=== PATIENT | female | born 1985 | race Caucasian/White ===

== ENCOUNTER → 2016-10-15 | Outpatient (CLI) | payer BC | LOC: LAB 23:42 | PROVIDERS: ATTEND Physician Assistant | DX: M79.1 Myalgia (principal) | CPT/HCPCS: 36415; 84436; 84443; 85652; 86038; 86140; 86430 ==

== ENCOUNTER → 2017-03-11 | Outpatient (CLI) | payer BC | LOC: OD 11:27 | PROVIDERS: ATTEND Physician Assistant | DX: E88.81 Metabolic syndrome and other insulin resistance (principal); Z53.8 Procedure and treatment not carried out for other reasons ==

== ENCOUNTER → 2017-05-18 | Outpatient (CLI) | payer BC ==
[2017-05-18 10:00] LABS: GLUCOSE,FASTING 94 mg/dL (<110)
[2017-05-18 10:03] LABS: FASTING GAC 92 (<110)
[2017-05-19 12:38] LABS: INSULIN 1 HOUR (60 MIN) 148.5 uIU/mL (0.0-163.5); INSULIN 2 HOUR (120 MIN) 140.3 uIU/mL (0.0-145.4); INSULIN FASTING 74.6 uIU/mL (2.6-24.9)
[2017-05-19 13:39] LABS: DILUTE RUSSELL VIPOR VENOM 40.6 sec (0.0-47.0); PTT-LA 34.6 sec (0.0-51.9); THROMBIN TIME 18.8 sec (0.0-23.0)
[2017-05-19 15:19] LABS: LUPUS PANEL INTERPRETATION Comment: (.)
== END ==
LOC: OD 07:56
PROVIDERS: ATTEND Student in an Organized Health Care Education/Training Program
DX: F32.9 Major depressive disorder, single episode, unspecified (principal); G43.009 Migraine without aura, not intractable, without status migrainosus; E88.81 Metabolic syndrome and other insulin resistance; Z83.2 Family history of diseases of the blood and blood-forming organs and certain disorders involving the immune mechanism
CPT/HCPCS: 36415; 82951; 83520; 83525; 86225; 86235

== ENCOUNTER 2017-07-15 20:42 | Emergency (ER) | payer BC ==
[2017-07-15] MEDS ORDERED: NORMAL SALINE 1000 ML 1,000 ML IV ONE (21:31)
[2017-07-15] MEDS ORDERED: ONDANSETRON HCL INJ/PF 4 MG/2 ML SDV IV ONE (21:31)
[2017-07-15] MEDS ORDERED: MORPHINE SULFATE 10 MG/ML INJ IV ONE (21:48)
[2017-07-15] MEDS ORDERED: KETOROLAC TROMETHAMINE INJ/PF 30 MG/1 ML SDV IV ONE (21:48)
[2017-07-15 22:00] LABS: ABSOLUTE BASOPHILS # (AUTO) 0.1 10^3/uL (0.0-0.2); ABSOLUTE EOSINOPHILS # (AUTO) 0.7 10^3/uL (0.0-0.6); ABSOLUTE LYMPHOCYTES (AUTO) 2.6 10^3/uL (0.5-4.7); ABSOLUTE MONOCYTES (AUTO) 0.9 10^3/uL (0.1-1.4); ABSOLUTE NEUT (AUTO) 12.4 10^3/uL (1.7-8.2); BASOPHILS % (AUTO) 0.4 % (0-2); EOSINOPHILS % (AUTO) 4.3 % (0-6); HEMATOCRIT 45.3 % (36.0-47.0); HEMOGLOBIN 15.4 g/dL (12.0-15.5); LYMPHOCYTES % (AUTO) 15.5 % (13-45); MEAN CORPUSCULAR HEMOGLOBIN 26.9 pg (27.0-33.4); MEAN CORPUSCULAR HGB CONC 33.9 g/dL (32.0-36.0); MEAN CORPUSCULAR VOLUME 79 fl (80-97); MONOCYTES % (AUTO) 5.1 % (3-13); PLATELET COUNT 385 10^3/uL (150-450); RED BLOOD COUNT 5.72 10^6/uL (3.72-5.28); RED CELL DISTRIBUTION WIDTH 14.3 % (11.5-14.0); SEGMENTED NEUTROPHILS % (AUTO) 74.7 % (42-78); TOTAL CELLS COUNTED % (AUTO) 100 %; WHITE BLOOD COUNT 16.6 10^3/uL (4.0-10.5)
[2017-07-15 22:04] LABS: APPEARANCE,URINE SLIGHTLY-CLOUDY; BILIRUBIN,URINE NEGATIVE (NEGATIVE); COLOR,URINE YELLOW; GLUCOSE, URINE NEGATIVE (NEGATIVE); KETONES,URINE 20 mg/dL (NEGATIVE); LEUKOCYTE ESTERASE,URINE SMALL (NEGATIVE); NITRITE,URINE NEGATIVE (NEGATIVE); PROTEIN,URINE 100 mg/dL (NEGATIVE); URINE SPECIFIC GRAVITY 1.025
[2017-07-15 22:21] LABS: ALANINE AMINOTRANSFERASE 77 U/L (9-52); ALBUMIN 4.4 g/dL (3.5-5.0); ALKALINE PHOSPHATASE 80 U/L (38-126); ANION GAP 15 (5-19); ASPARTATE AMINO TRANSFERASE 51 U/L (14-36); BILIRUBIN,DIRECT 0.2 mg/dL (0.0-0.4); BILIRUBIN,TOTAL 0.3 mg/dL (0.2-1.3); BLOOD UREA NITROGEN 13 mg/dL (7-20); CALCIUM 9.7 mg/dL (8.4-10.2); CARBON DIOXIDE 23 mmol/L (22-30); CHLORIDE 104 mmol/L (98-107); GLUCOSE 98 mg/dL (75-110); LIPASE 116.5 U/L (23-300); POTASSIUM 3.6 mmol/L (3.6-5.0); SODIUM 142.3 mmol/L (137-145); TOTAL PROTEIN 7.3 g/dL (6.3-8.2)
--- NOTE | 2017-07-15 23:03 | RADIOLOGY REPORT (SQ) ---
EXAM DESCRIPTION: U/S ABDOMEN LIMITED W/O DOP CLINICAL HISTORY: 32 years, Female, pain COMPARISON: None. LIMITATIONS: None. FINDINGS: Gallbladder, negative sonographic Hoffman's test, 11 cm right kidney, and liver appear unremarkable. Partially obscured aorta and pancreas. Indeterminate 10.6 x 11.5 x 12 cm mid abdominal cystic collection may may be related to history of gastric balloon or abscess removal. IMPRESSION: Indeterminate 11.5 cm cystic mass of the upper mid abdomen. Consider IV and oral contrast CT of the abdomen pelvis, as clinically warranted.
[2017-07-15] MEDS ORDERED: HYDROCODONE/ACETAMINOPHEN 5-325 MG (6 TAB/ER DISP) PO PRN (23:36)
--- NOTE | 2017-07-15 23:36 | ER Document Report ---
ED GI/ - General Chief Complaint: Epigastric Pain Stated Complaint: ABDOMINAL PAIN Time Seen by Provider: 07/15/17 21:25 Mode of Arrival: Ambulatory Information source: Patient TRAVEL OUTSIDE OF THE [place] IN LAST 30 DAYS: No - HPI Patient complains to provider of: Abdominal pain, Vomiting Onset: This afternoon Timing/Duration: Sudden, Intermittent Quality of pain: Sharp, Stabbing Severity at maximum: Moderate Severity in ED: Moderate Pain Level: 4 Location: Epigastric Associated symptoms: Nausea, Vomiting Notes: 07/16/17 00:25 Patient is a 32-year-old female presenting to the emergency room today complaining of epigastric abdominal pain that radiates into her back, going on intermittently over the past few weeks but are particularly worsened today and associated with nausea and vomiting, patient had a gastric balloon placed a proximally 3 weeks ago for weight loss purposes, she has been tolerating this well up until today, she denies any fevers, no urinary symptoms, denies , stools have been watery since the gastric balloon placement - Related Data Allergies/Adverse Reactions: codeine [Codeine] Allergy (Mild, Verified 09/18/14 20:14) Hives Sulfa (Sulfonamide Antibiotics) Allergy (Mild, Verified 09/18/14 20:14) Hives Past Medical History - General Information source: Patient - Social History Smoking Status: Never Smoker Chew tobacco use (# tins/day): No Frequency of alcohol use: None Drug Abuse: None Family History: Reviewed & Not Pertinent Patient has suicidal ideation: No Patient has homicidal ideation: No Neurological Medical History: Reports: Hx Migraine Renal/ Medical History: Reports: Hx Peritoneal Dialysis Psychiatric Medical History: Reports: Hx Depression Past Surgical History: Reports: Hx Orthopedic Surgery, Hx Tonsillectomy, Hx Urinary Tract Surgery - urethra dilitation - Immunizations Immunizations up to date: Yes Hx Diphtheria, Pertussis, Tetanus Vaccination: Yes Review of Systems - Review of Systems Constitutional: No symptoms reported EENT: No symptoms reported Cardiovascular: No symptoms reported Respiratory: No symptoms reported Gastrointestinal: See HPI Genitourinary: No symptoms reported Female Genitourinary: No symptoms reported Musculoskeletal: No symptoms reported Skin: No symptoms reported Hematologic/Lymphatic: No symptoms reported Neurological/Psychological: No symptoms reported -: Yes All other systems reviewed and negative Physical Exam - Vital signs Vitals: Temp Pulse Resp BP Pulse Ox 97.9 F 129 H 16 148/104 H 99 07/15/17 20:48 07/15/17 20:48 07/15/17 20:48 07/15/17 20:48 07/15/17 20:48 Interpretation: Tachycardic - General General appearance: Appears well, Alert - HEENT Head: Normocephalic, Atraumatic Eyes: Normal Pupils: PERRL - Respiratory Respiratory status: No respiratory distress Chest status: Nontender Breath sounds: Normal Chest palpation: Normal - Cardiovascular Rhythm: Regular Heart sounds: Normal auscultation Murmur: No - Abdominal Inspection: Normal Distension: No distension Bowel sounds: Normal Tenderness: Tender - Epigastric Organomegaly: No organomegaly - Back Back: Normal, Nontender - Extremities General upper extremity: Normal inspection, Nontender, Normal color, Normal ROM , Normal temperature General lower extremity: Normal inspection, Nontender, Normal color, Normal ROM , Normal temperature, Normal weight bearing. No: Caroline's sign - Neurological Neuro grossly intact: Yes Cognition: Normal Orientation: AAOx4 [place] Coma Scale Eye Opening: Spontaneous [place] Coma Scale Verbal: Oriented [place] Coma Scale Motor: Obeys Commands [place] Coma Scale Total: 15 Speech: Normal Motor strength normal: LUE, RUE, LLE, RLE Sensory: Normal - Psychological Associated symptoms: Normal affect, Normal mood - Skin Skin Temperature: Warm Skin Moisture: Dry Skin Color: Normal Course - Re-evaluation Re-evalutation: 07/16/17 00:26 Lab and imaging findings were discussed with patient at bedside, she does report improvement after receiving IV Toradol, patient was advised to follow-up with the solution manager that placed the gastric balloon for reevaluation, or return to the emergency room if symptoms worsen, patient acknowledges understanding and agreement with this plan - Vital Signs Vital signs: Temp Pulse Resp BP Pulse Ox 97.9 F 129 H 14 122/76 96 07/15/17 20:48 07/15/17 20:48 07/16/17 00:01 07/16/17 00:00 07/15/17 21:39 - Laboratory Result Diagrams: 07/15/17 21:45 07/15/17 21:45 Laboratory results interpreted by me: 07/15/17 07/15/17 07/15/17 21:45 21:45 21:49 WBC 16.6 H RBC 5.72 H MCV 79 L MCH 26.9 L RDW 14.3 H Absolute Neutrophils 12.4 H Absolute Eosinophils 0.7 H AST 51 H ALT 77 H Urine Protein 100 H Urine Ketones 20 H Urine Urobilinogen 2.0 H Ur Leukocyte Esterase SMALL H - Diagnostic Test Radiology reviewed: Image reviewed, Reports reviewed Discharge - Discharge Clinical Impression: Abdominal pain Qualifiers: Abdominal location: epigastric Qualified Code(s): R10.13 - Epigastric pain Condition: Stable Disposition: HOME, SELF-CARE Instructions: Abdominal Pain ([facility]) Additional Instructions: Follow up with your primary care provider and your solution manager in one to 2 days. Return to the emergency room immediately if symptoms worsen or any additional concerns. Referrals: ABNER MAHAJAN, [Primary Care Provider] - Follow up as needed
[2017-07-15] MEDS ORDERED: ONDANSETRON ODT 4 MG TAB (6 TAB/ER DISP) PO PRN (23:47)
[2017-07-16 00:14] VITALS: BP 122/76
== END 2017-07-16 00:14 | disposition home or self-care (01) ==
LOC: ER 20:42
DX: R10.13 Epigastric pain (principal); R11.2 Nausea with vomiting, unspecified; M54.9 Dorsalgia, unspecified; Z98.84 Bariatric surgery status
CPT/HCPCS: 99284; 96360; 96374; 96375; 36415; 83690; 85025; 81025; 80053; 81001; 76705; J1885; J2405; J7030